=== PATIENT | male | born 1950 ===

== ENCOUNTER 2020-09-16 00:13 | Day surgery (SDC) | payer OTHER | END 2020-09-16 23:02 | disposition home or self-care (01) | LOC: WOUND 00:13 | DX: L59.8 Other specified disorders of the skin and subcutaneous tissue related to radiation (principal); C10.1 Malignant neoplasm of anterior surface of epiglottis; R13.14 Dysphagia, pharyngoesophageal phase; I89.0 Lymphedema, not elsewhere classified; J44.9 Chronic obstructive pulmonary disease, unspecified; G47.30 Sleep apnea, unspecified; I11.0 Hypertensive heart disease with heart failure; I50.9 Heart failure, unspecified; E11.9 Type 2 diabetes mellitus without complications; F03.90 Unspecified dementia, unspecified severity, without behavioral disturbance, psychotic disturbance, mood disturbance, and anxiety; Z87.891 Personal history of nicotine dependence; Z88.0 Allergy status to penicillin; Z92.21 Personal history of antineoplastic chemotherapy; Z92.3 Personal history of irradiation; F40.240 Claustrophobia | CPT/HCPCS: G0463 ==

== ENCOUNTER 2020-09-23 00:53 | Day surgery (SDC) | payer OTHER | END 2020-09-23 23:00 | disposition home or self-care (01) | LOC: HBO | DX: L59.8 Other specified disorders of the skin and subcutaneous tissue related to radiation (principal); C10.1 Malignant neoplasm of anterior surface of epiglottis; Y84.2 Radiological procedure and radiotherapy as the cause of abnormal reaction of the patient, or of later complication, without mention of misadventure at the time of the procedure | CPT/HCPCS: 82947; G0277 ==

== ENCOUNTER 2020-09-30 02:37 | Day surgery (SDC) | payer OTHER | END 2020-09-30 23:35 | disposition home or self-care (01) | LOC: HBO 02:37 | DX: L59.8 Other specified disorders of the skin and subcutaneous tissue related to radiation (principal); C10.1 Malignant neoplasm of anterior surface of epiglottis; R13.14 Dysphagia, pharyngoesophageal phase | CPT/HCPCS: 82947; G0277 ==

== ENCOUNTER 2020-10-01 00:52 | Day surgery (SDC) | payer OTHER | END 2020-10-01 23:29 | disposition home or self-care (01) | LOC: HBO 00:52 | DX: L59.8 Other specified disorders of the skin and subcutaneous tissue related to radiation (principal); C10.1 Malignant neoplasm of anterior surface of epiglottis; R13.14 Dysphagia, pharyngoesophageal phase | CPT/HCPCS: 82947; G0277 ==

== ENCOUNTER 2020-10-02 01:27 | Day surgery (SDC) | payer OTHER | END 2020-10-02 23:01 | disposition home or self-care (01) | LOC: HBO 01:27 | DX: L59.8 Other specified disorders of the skin and subcutaneous tissue related to radiation (principal); C10.1 Malignant neoplasm of anterior surface of epiglottis; R13.14 Dysphagia, pharyngoesophageal phase | CPT/HCPCS: 82947; G0277 ==

== ENCOUNTER 2020-10-03 00:23 | Day surgery (SDC) | payer OTHER | END 2020-10-03 22:54 | disposition home or self-care (01) | LOC: HBO 00:23 | DX: L59.8 Other specified disorders of the skin and subcutaneous tissue related to radiation (principal); C10.1 Malignant neoplasm of anterior surface of epiglottis; R13.14 Dysphagia, pharyngoesophageal phase; Y84.2 Radiological procedure and radiotherapy as the cause of abnormal reaction of the patient, or of later complication, without mention of misadventure at the time of the procedure | CPT/HCPCS: 82947; G0277 ==

== ENCOUNTER 2020-10-04 00:36 | Day surgery (SDC) | payer OTHER | END 2020-10-04 22:49 | disposition home or self-care (01) | LOC: HBO 00:36 | DX: L59.8 Other specified disorders of the skin and subcutaneous tissue related to radiation (principal); C10.1 Malignant neoplasm of anterior surface of epiglottis; R13.14 Dysphagia, pharyngoesophageal phase; Y84.2 Radiological procedure and radiotherapy as the cause of abnormal reaction of the patient, or of later complication, without mention of misadventure at the time of the procedure | CPT/HCPCS: 82947; G0277 ==

== ENCOUNTER 2020-10-07 00:24 | Day surgery (SDC) | payer OTHER | END 2020-10-07 22:56 | disposition home or self-care (01) | LOC: HBO 00:24 | DX: L59.8 Other specified disorders of the skin and subcutaneous tissue related to radiation (principal); C10.1 Malignant neoplasm of anterior surface of epiglottis; R13.14 Dysphagia, pharyngoesophageal phase; Y84.2 Radiological procedure and radiotherapy as the cause of abnormal reaction of the patient, or of later complication, without mention of misadventure at the time of the procedure | CPT/HCPCS: 82947; G0277 ==

== ENCOUNTER 2020-10-08 00:58 | Day surgery (SDC) | payer OTHER | END 2020-10-08 22:55 | disposition home or self-care (01) | LOC: HBO 00:58 | DX: L59.8 Other specified disorders of the skin and subcutaneous tissue related to radiation (principal); C10.1 Malignant neoplasm of anterior surface of epiglottis; R13.14 Dysphagia, pharyngoesophageal phase; Y84.2 Radiological procedure and radiotherapy as the cause of abnormal reaction of the patient, or of later complication, without mention of misadventure at the time of the procedure | CPT/HCPCS: 82947; G0277 ==

== ENCOUNTER 2020-10-09 00:34 | Day surgery (SDC) | payer OTHER | END 2020-10-09 22:44 | disposition home or self-care (01) | LOC: HBO 00:34 | DX: L59.8 Other specified disorders of the skin and subcutaneous tissue related to radiation (principal); C10.1 Malignant neoplasm of anterior surface of epiglottis; R13.14 Dysphagia, pharyngoesophageal phase; Y84.2 Radiological procedure and radiotherapy as the cause of abnormal reaction of the patient, or of later complication, without mention of misadventure at the time of the procedure | CPT/HCPCS: 82947; G0277 ==

== ENCOUNTER 2020-10-10 00:30 | Day surgery (SDC) | payer OTHER | END 2020-10-10 22:59 | disposition home or self-care (01) | LOC: HBO 00:30 | DX: L59.8 Other specified disorders of the skin and subcutaneous tissue related to radiation (principal); C10.1 Malignant neoplasm of anterior surface of epiglottis; R13.14 Dysphagia, pharyngoesophageal phase; Y84.2 Radiological procedure and radiotherapy as the cause of abnormal reaction of the patient, or of later complication, without mention of misadventure at the time of the procedure | CPT/HCPCS: 82947; G0277 ==

== ENCOUNTER 2020-10-11 00:38 | Day surgery (SDC) | payer OTHER | END 2020-10-11 22:57 | disposition home or self-care (01) | LOC: HBO 00:38 | DX: L59.8 Other specified disorders of the skin and subcutaneous tissue related to radiation (principal); C10.1 Malignant neoplasm of anterior surface of epiglottis; R13.14 Dysphagia, pharyngoesophageal phase; Y84.2 Radiological procedure and radiotherapy as the cause of abnormal reaction of the patient, or of later complication, without mention of misadventure at the time of the procedure | CPT/HCPCS: 82947; G0277 ==

== ENCOUNTER 2020-10-14 00:51 | Day surgery (SDC) | payer OTHER | END 2020-10-14 22:52 | disposition home or self-care (01) | LOC: HBO 00:51 | DX: L59.8 Other specified disorders of the skin and subcutaneous tissue related to radiation (principal); C10.1 Malignant neoplasm of anterior surface of epiglottis; R13.14 Dysphagia, pharyngoesophageal phase; Y84.2 Radiological procedure and radiotherapy as the cause of abnormal reaction of the patient, or of later complication, without mention of misadventure at the time of the procedure | CPT/HCPCS: 82947; G0277 ==

== ENCOUNTER 2020-10-15 01:20 | Day surgery (SDC) | payer OTHER | END 2020-10-15 23:16 | disposition home or self-care (01) | LOC: HBO 01:20 | DX: L59.8 Other specified disorders of the skin and subcutaneous tissue related to radiation (principal); C10.1 Malignant neoplasm of anterior surface of epiglottis; R13.14 Dysphagia, pharyngoesophageal phase | CPT/HCPCS: 82947; G0277 ==

== ENCOUNTER 2020-10-16 00:11 | Day surgery (SDC) | payer OTHER | END 2020-10-16 22:50 | disposition home or self-care (01) | LOC: HBO 00:11 | DX: L59.8 Other specified disorders of the skin and subcutaneous tissue related to radiation (principal); C10.1 Malignant neoplasm of anterior surface of epiglottis; R13.14 Dysphagia, pharyngoesophageal phase | CPT/HCPCS: 82947; G0277 ==

== ENCOUNTER 2020-10-17 00:14 | Day surgery (SDC) | payer OTHER | END 2020-10-17 22:42 | disposition home or self-care (01) | LOC: HBO 00:14 | DX: L59.8 Other specified disorders of the skin and subcutaneous tissue related to radiation (principal); C10.1 Malignant neoplasm of anterior surface of epiglottis; R13.14 Dysphagia, pharyngoesophageal phase | CPT/HCPCS: 82947; G0277 ==

== ENCOUNTER 2020-10-18 00:53 | Day surgery (SDC) | payer OTHER | END 2020-10-18 23:10 | disposition home or self-care (01) | LOC: HBO 00:53 | DX: L59.8 Other specified disorders of the skin and subcutaneous tissue related to radiation (principal); C10.1 Malignant neoplasm of anterior surface of epiglottis; R13.14 Dysphagia, pharyngoesophageal phase; Y84.2 Radiological procedure and radiotherapy as the cause of abnormal reaction of the patient, or of later complication, without mention of misadventure at the time of the procedure | CPT/HCPCS: 82947; G0277 ==

== ENCOUNTER 2020-10-21 00:28 | Day surgery (SDC) | payer OTHER | END 2020-10-21 22:53 | disposition home or self-care (01) | LOC: HBO 00:28 | DX: L59.8 Other specified disorders of the skin and subcutaneous tissue related to radiation (principal); C10.1 Malignant neoplasm of anterior surface of epiglottis; R13.14 Dysphagia, pharyngoesophageal phase | CPT/HCPCS: 82947; G0277 ==

== ENCOUNTER 2020-10-22 00:11 | Day surgery (SDC) | payer OTHER | END 2020-10-22 22:53 | disposition home or self-care (01) | LOC: HBO 00:11 | DX: L59.8 Other specified disorders of the skin and subcutaneous tissue related to radiation (principal); C10.1 Malignant neoplasm of anterior surface of epiglottis; R13.14 Dysphagia, pharyngoesophageal phase | CPT/HCPCS: 82947; G0277 ==

== ENCOUNTER 2020-10-23 00:26 | Day surgery (SDC) | payer OTHER | END 2020-10-23 22:46 | disposition home or self-care (01) | LOC: HBO 00:26 | DX: L59.8 Other specified disorders of the skin and subcutaneous tissue related to radiation (principal); C10.1 Malignant neoplasm of anterior surface of epiglottis; R13.14 Dysphagia, pharyngoesophageal phase; Y84.2 Radiological procedure and radiotherapy as the cause of abnormal reaction of the patient, or of later complication, without mention of misadventure at the time of the procedure | CPT/HCPCS: G0277 ==

== ENCOUNTER 2020-10-24 00:33 | Day surgery (SDC) | payer OTHER | END 2020-10-24 23:19 | disposition home or self-care (01) | LOC: HBO 00:33 | DX: L59.8 Other specified disorders of the skin and subcutaneous tissue related to radiation (principal); C10.1 Malignant neoplasm of anterior surface of epiglottis; R13.14 Dysphagia, pharyngoesophageal phase; Y84.2 Radiological procedure and radiotherapy as the cause of abnormal reaction of the patient, or of later complication, without mention of misadventure at the time of the procedure | CPT/HCPCS: 82947; G0277 ==

== ENCOUNTER 2020-10-25 00:49 | Day surgery (SDC) | payer OTHER | END 2020-10-25 23:26 | disposition home or self-care (01) | LOC: HBO 00:49 | DX: L59.8 Other specified disorders of the skin and subcutaneous tissue related to radiation (principal); C10.1 Malignant neoplasm of anterior surface of epiglottis; R13.14 Dysphagia, pharyngoesophageal phase; Y84.2 Radiological procedure and radiotherapy as the cause of abnormal reaction of the patient, or of later complication, without mention of misadventure at the time of the procedure | CPT/HCPCS: 82947; G0277 ==

== ENCOUNTER 2020-10-28 00:17 | Day surgery (SDC) | payer OTHER | END 2020-10-28 23:10 | disposition home or self-care (01) | LOC: HBO 00:17 | DX: L59.8 Other specified disorders of the skin and subcutaneous tissue related to radiation (principal); C10.1 Malignant neoplasm of anterior surface of epiglottis; R13.14 Dysphagia, pharyngoesophageal phase | CPT/HCPCS: 82947; G0277 ==

== ENCOUNTER 2020-10-30 01:14 | Day surgery (SDC) | payer OTHER | END 2020-10-30 23:21 | disposition home or self-care (01) | LOC: HBO 01:14 | DX: L59.8 Other specified disorders of the skin and subcutaneous tissue related to radiation (principal); C10.1 Malignant neoplasm of anterior surface of epiglottis; R13.14 Dysphagia, pharyngoesophageal phase | CPT/HCPCS: 82947; G0277 ==

== ENCOUNTER 2020-11-05 00:43 | Day surgery (SDC) | payer OTHER | END 2020-11-05 22:44 | disposition home or self-care (01) | LOC: HBO 00:43 | DX: L59.8 Other specified disorders of the skin and subcutaneous tissue related to radiation (principal); C10.1 Malignant neoplasm of anterior surface of epiglottis; R13.14 Dysphagia, pharyngoesophageal phase | CPT/HCPCS: 82947; G0277 ==

== ENCOUNTER 2020-11-07 01:55 | Day surgery (SDC) | payer OTHER | END 2020-11-07 23:14 | disposition home or self-care (01) | LOC: HBO 01:55 | DX: L59.8 Other specified disorders of the skin and subcutaneous tissue related to radiation (principal); C10.1 Malignant neoplasm of anterior surface of epiglottis; R13.14 Dysphagia, pharyngoesophageal phase; Y84.2 Radiological procedure and radiotherapy as the cause of abnormal reaction of the patient, or of later complication, without mention of misadventure at the time of the procedure | CPT/HCPCS: 82947; G0277 ==

== ENCOUNTER 2020-11-08 02:08 | Day surgery (SDC) | payer OTHER | END 2020-11-08 23:09 | disposition home or self-care (01) | LOC: HBO 02:08 | DX: L59.8 Other specified disorders of the skin and subcutaneous tissue related to radiation (principal); C10.1 Malignant neoplasm of anterior surface of epiglottis; R13.14 Dysphagia, pharyngoesophageal phase; Y84.2 Radiological procedure and radiotherapy as the cause of abnormal reaction of the patient, or of later complication, without mention of misadventure at the time of the procedure | CPT/HCPCS: 82947; G0277 ==

== ENCOUNTER 2020-11-11 00:07 | Day surgery (SDC) | payer OTHER | END 2020-11-11 23:00 | disposition home or self-care (01) | LOC: HBO 00:07 | DX: L59.8 Other specified disorders of the skin and subcutaneous tissue related to radiation (principal); C10.1 Malignant neoplasm of anterior surface of epiglottis; R13.14 Dysphagia, pharyngoesophageal phase | CPT/HCPCS: 82947; G0277 ==

== ENCOUNTER 2020-11-12 00:19 | Day surgery (SDC) | payer OTHER | END 2020-11-12 23:08 | disposition home or self-care (01) | LOC: HBO 00:19 | DX: L59.8 Other specified disorders of the skin and subcutaneous tissue related to radiation (principal); C10.1 Malignant neoplasm of anterior surface of epiglottis; R13.14 Dysphagia, pharyngoesophageal phase | CPT/HCPCS: 82947; G0277 ==

== ENCOUNTER 2020-11-15 00:47 | Day surgery (SDC) | payer OTHER | END 2020-11-15 23:06 | disposition home or self-care (01) | LOC: HBO 00:47 | DX: L59.8 Other specified disorders of the skin and subcutaneous tissue related to radiation (principal); C10.1 Malignant neoplasm of anterior surface of epiglottis; R13.14 Dysphagia, pharyngoesophageal phase | CPT/HCPCS: 82947; G0277 ==

== ENCOUNTER 2020-11-18 00:14 | Day surgery (SDC) | payer OTHER | END 2020-11-18 22:54 | disposition home or self-care (01) | LOC: HBO 00:14 | DX: L59.8 Other specified disorders of the skin and subcutaneous tissue related to radiation (principal); C10.1 Malignant neoplasm of anterior surface of epiglottis; R13.14 Dysphagia, pharyngoesophageal phase | CPT/HCPCS: 82947; G0277 ==

== ENCOUNTER 2020-11-19 03:29 | Day surgery (SDC) | payer OTHER | END 2020-11-19 23:07 | disposition home or self-care (01) | LOC: HBO | DX: L59.8 Other specified disorders of the skin and subcutaneous tissue related to radiation (principal); C10.1 Malignant neoplasm of anterior surface of epiglottis; R13.14 Dysphagia, pharyngoesophageal phase; Y84.2 Radiological procedure and radiotherapy as the cause of abnormal reaction of the patient, or of later complication, without mention of misadventure at the time of the procedure | CPT/HCPCS: 82947; G0277 ==

== ENCOUNTER 2020-11-20 03:46 | Day surgery (SDC) | payer OTHER | END 2020-11-20 22:51 | disposition home or self-care (01) | LOC: HBO | DX: L59.8 Other specified disorders of the skin and subcutaneous tissue related to radiation (principal); C10.1 Malignant neoplasm of anterior surface of epiglottis; R13.14 Dysphagia, pharyngoesophageal phase | CPT/HCPCS: 82947; G0277 ==

== ENCOUNTER 2020-11-21 00:33 | Day surgery (SDC) | payer OTHER | END 2020-11-21 23:02 | disposition home or self-care (01) | LOC: HBO | DX: L59.8 Other specified disorders of the skin and subcutaneous tissue related to radiation (principal); C10.1 Malignant neoplasm of anterior surface of epiglottis; R13.14 Dysphagia, pharyngoesophageal phase | CPT/HCPCS: 82947; G0277 ==

== ENCOUNTER 2020-11-21 00:44 | Day surgery (SDC) | payer OTHER | END 2020-11-21 23:02 | disposition home or self-care (01) | LOC: WOUND 00:44 | DX: L59.8 Other specified disorders of the skin and subcutaneous tissue related to radiation (principal); C10.1 Malignant neoplasm of anterior surface of epiglottis; R13.14 Dysphagia, pharyngoesophageal phase | CPT/HCPCS: G0463 ==

== ENCOUNTER 2020-11-22 00:40 | Day surgery (SDC) | payer OTHER | END 2020-11-22 22:41 | disposition home or self-care (01) | LOC: HBO 00:40 | DX: L59.8 Other specified disorders of the skin and subcutaneous tissue related to radiation (principal); C10.1 Malignant neoplasm of anterior surface of epiglottis; R13.14 Dysphagia, pharyngoesophageal phase | CPT/HCPCS: 82947; G0277 ==

== ENCOUNTER 2020-11-25 00:14 | Day surgery (SDC) | payer OTHER | END 2020-11-25 23:01 | disposition home or self-care (01) | LOC: HBO 00:14 | DX: L59.8 Other specified disorders of the skin and subcutaneous tissue related to radiation (principal); C10.1 Malignant neoplasm of anterior surface of epiglottis; R13.14 Dysphagia, pharyngoesophageal phase | CPT/HCPCS: 82947; G0277 ==

== ENCOUNTER 2020-11-26 03:02 | Day surgery (SDC) | payer OTHER | END 2020-11-26 23:06 | disposition home or self-care (01) | LOC: HBO 03:02 | DX: L59.8 Other specified disorders of the skin and subcutaneous tissue related to radiation (principal); C10.1 Malignant neoplasm of anterior surface of epiglottis; R13.14 Dysphagia, pharyngoesophageal phase | CPT/HCPCS: 82947; G0277 ==

== ENCOUNTER 2020-11-27 03:24 | Day surgery (SDC) | payer OTHER | END 2020-11-27 23:34 | disposition home or self-care (01) | LOC: HBO 03:24 | DX: L59.8 Other specified disorders of the skin and subcutaneous tissue related to radiation (principal); C10.1 Malignant neoplasm of anterior surface of epiglottis; R13.14 Dysphagia, pharyngoesophageal phase | CPT/HCPCS: 82947; G0277 ==

== ENCOUNTER 2020-11-29 00:57 | Day surgery (SDC) | payer OTHER | END 2020-11-29 23:10 | disposition home or self-care (01) | LOC: HBO 00:57 | DX: L59.8 Other specified disorders of the skin and subcutaneous tissue related to radiation (principal); C10.1 Malignant neoplasm of anterior surface of epiglottis; R13.14 Dysphagia, pharyngoesophageal phase | CPT/HCPCS: 82947; G0277 ==

== ENCOUNTER 2020-12-03 04:50 | Day surgery (SDC) | payer OTHER | END 2020-12-03 23:43 | disposition home or self-care (01) | LOC: HBO 04:50 | DX: L59.8 Other specified disorders of the skin and subcutaneous tissue related to radiation (principal); C10.1 Malignant neoplasm of anterior surface of epiglottis; R13.14 Dysphagia, pharyngoesophageal phase | CPT/HCPCS: 82947; G0277 ==

== ENCOUNTER 2020-12-04 04:38 | Day surgery (SDC) | payer OTHER | END 2020-12-04 22:57 | disposition home or self-care (01) | LOC: HBO 04:38 | DX: L59.8 Other specified disorders of the skin and subcutaneous tissue related to radiation (principal); R13.14 Dysphagia, pharyngoesophageal phase; C10.1 Malignant neoplasm of anterior surface of epiglottis | CPT/HCPCS: 82947; G0277 ==

== ENCOUNTER 2020-12-05 05:31 | Day surgery (SDC) | payer OTHER | END 2020-12-05 22:46 | disposition home or self-care (01) | LOC: HBO 05:31 | DX: L59.8 Other specified disorders of the skin and subcutaneous tissue related to radiation (principal); C10.1 Malignant neoplasm of anterior surface of epiglottis; R13.14 Dysphagia, pharyngoesophageal phase; Y84.2 Radiological procedure and radiotherapy as the cause of abnormal reaction of the patient, or of later complication, without mention of misadventure at the time of the procedure | CPT/HCPCS: 82947; G0277 ==

== ENCOUNTER 2020-12-09 00:39 | Day surgery (SDC) | payer OTHER | END 2020-12-09 23:01 | disposition home or self-care (01) | LOC: HBO 00:39 | DX: L59.8 Other specified disorders of the skin and subcutaneous tissue related to radiation (principal); C10.1 Malignant neoplasm of anterior surface of epiglottis; R13.14 Dysphagia, pharyngoesophageal phase | CPT/HCPCS: 82947; G0277 ==

== ENCOUNTER 2020-12-10 02:17 | Day surgery (SDC) | payer OTHER | END 2020-12-10 22:51 | disposition home or self-care (01) | LOC: HBO 02:17 | DX: L59.8 Other specified disorders of the skin and subcutaneous tissue related to radiation (principal); C10.1 Malignant neoplasm of anterior surface of epiglottis; R13.14 Dysphagia, pharyngoesophageal phase | CPT/HCPCS: 82947; G0277 ==

== ENCOUNTER 2020-12-11 02:23 | Day surgery (SDC) | payer OTHER | END 2020-12-11 23:51 | disposition home or self-care (01) | LOC: HBO 02:23 | DX: L59.8 Other specified disorders of the skin and subcutaneous tissue related to radiation (principal); C10.1 Malignant neoplasm of anterior surface of epiglottis; R13.14 Dysphagia, pharyngoesophageal phase | CPT/HCPCS: 82947; G0277 ==

== ENCOUNTER 2020-12-11 02:26 | Day surgery (SDC) | payer OTHER | END 2020-12-11 23:51 | disposition home or self-care (01) | LOC: WOUND 02:26 | DX: L59.8 Other specified disorders of the skin and subcutaneous tissue related to radiation (principal); C10.1 Malignant neoplasm of anterior surface of epiglottis; R13.14 Dysphagia, pharyngoesophageal phase | CPT/HCPCS: G0463 ==